=== PATIENT | male | born 1975 | race Caucasian/White ===

== ENCOUNTER 2019-06-19 13:40 | Inpatient (IN) | payer OTHER ==
[~2019-06-19] VITALS: Ht 190.5 cm; Wt 80.5 kg
--- NOTE | 2019-06-19 14:48 | NUR ---
PATIENT MEETS [facility]. CINA=19. PATIENT WAS PUT ON WAITING LIST AT [facility] FOR THEIR RESIDENTIAL FACILITY IN [place]. [place] STAFF WILL SET UP TRANSPORTATION THROUGH HIS INSURANCE ONCE HE IS READY TO BE DISCHARGED. CRYSTAL DAVIES B.A. WOOD CAR [employer]DER
[2019-06-19 15:20] LABS: BILIRUBIN NEGATIVE (NEGATIVE); BLOOD TRACE-INTACT (NEGATIVE); CLARITY CLEAR (CLEAR); COLOR YELLOW (YELLOW); GLUCOSE NEGATIVE (NEGATIVE); KETONE NEGATIVE (NEGATIVE); LEUKO ESTERASE NEGATIVE (NEGATIVE); NITRITE NEGATIVE (NEGATIVE); PH 8.5 (5.0-9.0); SPECIFIC GRAVITY 1.015 (1.005-1.030); UROBILINOGEN 0.2 E.U./dl (0.2-1.0)
[2019-06-19 15:34] LABS: BASO % 0.3 % (0.0-1.0); EOS # 0.1 10*3/uL (0.0-0.4); EOS % 1.2 % (1.0-4.0); HEMATOCRIT 39.8 % (42.0-52.0); HEMOGLOBIN 13.9 g/dl (14.0-18.0); LYMPH # 1.8 10*3/uL (1.3-4.4); LYMPH % 27.8 % (27.0-41.0); MEAN CELL VOLUME 90.7 fl (80.0-94.0); MEAN CORPUSCULAR HGB 31.7 pg (27.0-31.0); MEAN CORPUSCULAR HGB CONC 34.9 g/dl (33.0-37.0); MEAN PLATELET VOLUME 9.2 fl (9.6-12.3); MONO # 0.5 10*3/uL (0.1-1.0); NEUT # 4.1 10*3/uL (2.3-7.9); NEUT % 63.2 % (47.0-73.0); PLATELET COUNT AUTOMATED 381 10*3/uL (130-400); RED BLOOD COUNT 4.39 10*6/uL (4.50-5.90); RED CELL DISTRI WIDTH 11.9 % (0-14.5); WHITE BLOOD COUNT 6.5 10*3/uL (4.8-10.8)
[2019-06-19 15:35] LABS: URINE AMPHETAMINES > 1000 (1000ng/ml); URINE BENZODIAZEPINES > 200 (200ng/ml); URINE CANNABINOIDS (THC) > 50 (50ng/ml); URINE COCAINE < 300 (300ng/ml); URINE METHADONE < 300 (300ng/ml); URINE OPIATES > 300 (300ng/ml)
[2019-06-19 15:36] LABS: BACTERIA 1+
[2019-06-19 15:37] LABS: URINE BARBITURATES < 200 (200ng/ml)
[2019-06-19 15:41] LABS: URINE PHENCYCLIDINE < 25 (25ng/ml)
[2019-06-19 15:51] LABS: ALBUMIN 3.4 gm/dl (3.1-4.5); ALKALINE PHOSPHATASE 86 U/L (45-117); BUN 8 mg/dl (7-24); CHLORIDE 102 mmol/L (98-107); CREATININE 0.75 mg/dL (0.70-1.30); SGOT/AST 19 IU/L (3-35); SGPT/ALT 29 U/L (12-78); SODIUM 137 mmol/L (136-145); TOTAL PROTEIN 7.4 gm/dL (6.4-8.2)
[2019-06-19 15:55] LABS: ETHYL ALCOHOL < 3.0 mg/dl (<3)
[2019-06-19] MEDS ORDERED: CLINDAMYCIN HC300 MG PO (17:06)
--- NOTE | 2019-06-19 19:57 | NUR ---
PT MEDICATED WITH IMODIUM, VISTARIL, BENTYL, AND MOTRIN FOR COMPLAINTS OF DIARRHEA, ANXIETY, FINGER PAIN, AND STOMACH CRAMPS. WILL MONITOR FOR EFFECTIVENESS.
[2019-06-19 20:00] VITALS: BP 164/102
--- NOTE | 2019-06-19 21:20 | NUR ---
PT MUCH MORE RELAXED AT THIS TIME; MEDICATION HAS BEEN EFFECTIVE AT THIS TIME.
--- NOTE | 2019-06-19 22:45 | NUR ---
NOTIFIED THAT PATIENT STATES THAT HIS INFECTED FINGER IS GETTING MUCH WORSE AND MORE SWOLLEN. FINGER IS VERY LARGE, RED, AND SWOLLEN. NO SEEPAGE AT THIS TIME. HE STATES HE WILL COME HAVE A LOOK.
[2019-06-20] VITALS: BP 144/90
--- NOTE | 2019-06-20 00:20 | NUR ---
PATIENT IS RESTING IN BED WITH EASY AND REGULAR RESPERS ON ROOM AIR. CALL LIGHT IS WITHIN REACH. PATIENT C/O BODYACHES PRN ROBAXIN AND TYLENOL GIVEN. WILL CONTINUE TO MONITOR.
--- NOTE | 2019-06-20 04:45 | NUR ---
PATIENT AT [facility] REQUESTING BANDAIDS AND NEOSPORIN FOR CIGARETTE HERNANDEZ TO RIGHT POINTER FINGER, MIDDLE FINGER, AND RING FINGER. BANDAIDS PROVIDED, PATIENT REFUSING MEASUREMENTS AT THIS TIME.
--- NOTE | 2019-06-20 05:39 | NUR ---
24 HR. CHART CHECK COMPLETE.
--- NOTE | 2019-06-20 06:35 | NUR ---
THA MCMAHON [id number] Please refer to the physician's history and physical for past medical history, comorbid conditions, and allergies. Diagnosis: OPIATE WITHDRAWAL Yogesh Score: 22,LOW OR NO RISK WOUND DESCRIPTIONS: Wound Number: 1 Location of the wound: right index finger Type of wound: burn Thickness: Full Size: 0.7cm x 0.5cm x 0.1cm Tunneling: none Undermining: none Sinus Tract: none Presence of Exudate: Serous Amount: Light Color: Yellow, red Odor: None Periwound Skin Appearance: Erythema Wound edges: approximated Pain (associated with wound): none at time of assessment How does patient state this happened? pt stated he burnt himself Wound Number: 2 Location of the wound: right middle finger Type of wound: burn Thickness: Full Size: 0.3cm x 0.4cm x 0.1cm Tunneling: none Undermining: none Sinus Tract: none Presence of Exudate: None Amount: none Color: Yellow, red Odor: None Periwound Skin Appearance: Erythema Wound edges: approximated Pain (associated with wound): none at time of assessment How does patient state this happened? pt stated he burnt himself Wound Number: 3 Right index finger red, warmth and edema noted. No open areas at time of assessment. Patient is unable to bend finger at time of assessment. Pain noted at time of assessment. No drainage at time of assessment. Surface the patient is resting on: Isoflex SKIN PREVENTION RECOMMENDATION: 1. Pressure redistribution support surface as appropriate 2. Elevate heels 3. Remove boots/TEDS every shift and reapply 4. Head of bed 30 degrees as tolerated 5. Assess nutrition and hydration 6. Manage moisture 7. Avoid the use of containment devices while in bed 8. Use absorptive products on surfaces limit layers of linens on bed 9. Turn and reposition every 1-2 hours in bed and every 1 hour in chair as tolerated 10. Weight shifts every 15 minutes while up in chair 11. Offloading with pillows or device to keep heels elevated off bed 12. Monitor skin at least every shift 13. Inspect under medical devices twice a day WOUND TREATMENT RECOMMENDATIONS: Consult surgery & ID for right index finger. Cleanse right index finger with nss and apply sureprep around the wound therahoney to wound bed and cover with bandaid daily and prn for soiling.
[2019-06-20 09:45] LABS: BASO % 0.6 % (0.0-1.0); EOS # 0.2 10*3/uL (0.0-0.4); EOS % 2.4 % (1.0-4.0); HEMATOCRIT 40.9 % (42.0-52.0); HEMOGLOBIN 14.1 g/dl (14.0-18.0); LYMPH # 2.5 10*3/uL (1.3-4.4); MEAN CELL VOLUME 91.7 fl (80.0-94.0); MEAN CORPUSCULAR HGB 31.6 pg (27.0-31.0); MEAN CORPUSCULAR HGB CONC 34.5 g/dl (33.0-37.0); MEAN PLATELET VOLUME 9.4 fl (9.6-12.3); MONO # 0.7 10*3/uL (0.1-1.0); MONO % 9.3 % (3.0-9.0); NEUT # 3.6 10*3/uL (2.3-7.9); NEUT % 51.3 % (47.0-73.0); PLATELET COUNT AUTOMATED 380 10*3/uL (130-400); RED BLOOD COUNT 4.46 10*6/uL (4.50-5.90); RED CELL DISTRI WIDTH 11.9 % (0-14.5)
--- NOTE | 2019-06-20 09:52 | NUR ---
ATTEMPTED TO CONSULT DR SLADE BUT WAS PUT ON HOLD FOR A LONG TIME. WILL ATEMPT AGAIN.
[2019-06-20 09:59] LABS: BUN 7 mg/dl (7-24); CHLORIDE 106 mmol/L (98-107); CREATININE 0.84 mg/dL (0.70-1.30); POTASSIUM 3.9 mmol/L (3.5-5.1); SODIUM 139 mmol/L (136-145)
--- NOTE | 2019-06-20 10:51 | NUR ---
Nutritional Support Services Note: Dx of opiate withdrawal. Pt has cigarette hoffmann to his hand. Appetite is good for meals, he is eating 100% of meals. Regular diet as ordered with HS snack. Encouraged continued good intake of meals and snacks. No other nutrition intervention needed at this time. Ashleigh Escamilla Rdn Ld
--- NOTE | 2019-06-20 11:49 | NUR ---
TRIED CALLING DR MOSELEY'S OFFICE AND ANSWERING SERVICE FOR CONSULT. WAS PUT ON HOLD FOR A GOOD AMOUNT OF TIME AND WAS UNABLE TO SPEAK TO A PERSON.
[2019-06-20 12:00] VITALS: BP 154/100
[2019-06-20 16:00] VITALS: BP 145/100
[2019-06-20 20:00] VITALS: BP 131/90
--- NOTE | 2019-06-20 23:10 | NUR ---
PRN BENADRYL AND VISTARIL GIVEN FOR ANXIETY, PRN TYLENOL, ROBAXIN, AND MOTRIN GIVEN FOR C/O HEADACHE AND BODYACHES. CALL LIGHT IS WITHIN REACH, WILL MONITOR EFFECT.
--- NOTE | 2019-06-20 23:44 | NUR ---
PATIENT IS RESTING IN BED WITH EASY AND REGULAR RESPERS ON ROOM AIR. ASSESSMENT IS COMPLETE WITH NO S/S OF DISTRESS NOTED. PATIENT C/O BODYACHES AND RIGHT RING FINGER BEING SWOLLEN MORE THAN IT WAS YESTERDAY. NO PRN MEDICATIONS DUE AT THIS TIME. CALL LIGHT IS WITHIN REACH, WILL CONTINUE TO MONITOR.
[2019-06-21] VITALS: BP 138/91
--- NOTE | 2019-06-21 02:01 | NUR ---
24 HR chart check completed.
[2019-06-21 08:00] VITALS: BP 114/78
--- NOTE | 2019-06-21 14:57 | NUR ---
PT D/C'D TO [facility] FOR HIGHER LEVEL OF CARE.UNABLE TO OBTAIN TRANSPORTATION TO [place] UNTIL TOMORROW D/T HOLIDAY. TRANSFER NUMBER [phone]. CALL AT 7 AM 06/22/19 FOR BED.
[2019-06-21 16:00] VITALS: BP 119/73
[2019-06-21 20:00] VITALS: BP 138/82
[2019-06-22] VITALS: BP 137/78
--- NOTE | 2019-06-22 07:57 | NUR ---
PT STATES THAT HIS FINGER IS IN PAIN RATING IT A 5/10 AND IS REQUESTING SOMETHING FOR PAIN. AT THIS TIME MOTRIN PO IS GIVEN. WILL CONTINUE TO MONITOR THE PATIENT. CALL LIGHT WITHIN REACH
[2019-06-22 08:00] VITALS: BP 114/68
--- NOTE | 2019-06-22 08:57 | NUR ---
KERLINE SOTOMAYOR FROM [facility] TRANSFER CALLED AND STATES THAT A BED IS READY FOR HIM, JUST WAITNING TO HEAR FROM INSURANCE. UPDATED HER WITH PT VITALS AND CURRENT STATUS. SHE LEFT A CALL BACK NUMBER FOR ME TO REACH HER AT TO CALL ONCE WE KNOW A TIME THAT THE PATIENT WILL BE TRANSFERED THERE.
--- NOTE | 2019-06-22 09:12 | NUR ---
CALLED [facility] TO SEE WHAT THE PLAN WAS AT TO THE PATIENT BEING DISCHARGED AND TRANSFERED TO [facility]. LEFT A MESSAGE FOR THEM TO CALL BACK
--- NOTE | 2019-06-22 10:50 | NUR ---
CALLED DR DE LA CRUZ AND TOLD HIM THAT THE PATIENT WISHES TO NOT LEAVE AMA AND TO BE SENT SOMEWHERE CLOSER FOR HIS FINGER. HE STATES OK AND THAT HE WILL WORK ON GETTING ANOTHER PLACE IN ORDER
--- NOTE | 2019-06-22 11:01 | NUR ---
PT STATES THAT HE WANTS TO STAY AND BE TREATED FOR HIS FINGER AND NO LONGER LEAVE AMA. HE STATES THAT HIS FINGER IS GETTING WORSE AND THAT HE WANTS TO GET IN CLOSE POSSIBLE FOR HIS FINGER
--- NOTE | 2019-06-22 11:57 | NUR ---
DR DE LA CRUZ CALLED TO INFORM ME THAT THEY HAVE AN ACCEPTING HOSP AT [facility], THEY WILL FAX OVER EVERYTHING WIHTIN THE HOUR AND THAT THEY WILL WANT IMAGING SENT WITH THE PATIENT. WILL GO INTO ROOM NOW TO UPDATE THE PATIENT.
[2019-06-22 12:00] VITALS: BP 122/70
--- NOTE | 2019-06-22 14:56 | NUR ---
Shift chart check completed.
[2019-06-22 16:00] VITALS: BP 124/78
--- NOTE | 2019-06-22 16:16 | NUR ---
PT STATES THE HE IS HAVING PAIN IN HIS RING FINGER ON HIS RIGHT HAND RATING IT A 6/10 AND IS REQUESTING SOMETHING FOR PAIN. PO MOTRIN IS GIVEN AT THIS TIME. WILL CONTINUE TO MONITOR, CALL LIGHT WITHIN REACH
--- NOTE | 2019-06-22 16:44 | NUR ---
DR DE LA CRUZ ON THE FLOOR AND INFORMED HIM THAT [facility] HAS A BED READY FOR THE PATIENT AND HE WILL PUT IN THE ORDER
--- NOTE | 2019-06-22 17:07 | NUR ---
CALLED [facility] TO GIVE REPORT TO THE NURSE AND THEY ARE UNSURE OF WHERE THE PT IS BEING PLACED. I GAVE A CALL BACK NUMBER AND ONCE THEY FIGURE IT OUT THEY WILL GIVE ME A CALL BACK.
--- NOTE | 2019-06-22 17:17 | NUR ---
SPOKE TO NURSE NEFF WHO WILL BE CARING FOR THE PATIENT AND GAVE REPORT TO HER.
--- NOTE | 2019-06-22 19:03 | NUR ---
PT LEFT VIA AMBULANCE VIA [facility]
== END 2019-06-22 19:03 | disposition short-term general hospital (02) | DRG 773 ==
LOC: 4E 13:40
PROVIDERS: Nurse Practitioner; Student in an Organized Health Care Education/Training Program; ADMIT Family Medicine
DX: F11.23 Opioid dependence with withdrawal (principal); L03.011 Cellulitis of right finger; M65.9 Synovitis and tenosynovitis, unspecified; E44.1 Mild protein-calorie malnutrition; B19.20 Unspecified viral hepatitis C without hepatic coma; F12.10 Cannabis abuse, uncomplicated; F13.10 Sedative, hypnotic or anxiolytic abuse, uncomplicated; F15.10 Other stimulant abuse, uncomplicated; F17.210 Nicotine dependence, cigarettes, uncomplicated; G40.909 Epilepsy, unspecified, not intractable, without status epilepticus; Z71.6 Tobacco abuse counseling; Z68.22 Body mass index [BMI] 22.0-22.9, adult